=== PATIENT | female | born 1995 | race Two or more races ===

== ENCOUNTER → 2018-08-04 | Outpatient (CLI) | payer BC ==
[2018-08-04 16:42] LABS: Urine Blood Negative /uL (Negative); Urine Specific Gravity 1.025 (1.001-1.035)
[2018-08-04 16:53] LABS: Alanine Aminotransferase 83 U/L (13-56); Alkaline Phosphatase 94 U/L (45-117); Anion Gap 3 (5-15); Aspartate Aminotransferase 52 U/L (15-37); BUN/Creatinine Ratio 17.1; Bilirubin, Direct < 0.1 mg/dL (0-0.2); Bilirubin, Total 0.4 mg/dL (0.2-1.0); Blood Urea Nitrogen 12 mg/dL (7-18); Calcium 9.1 mg/dL (8.5-10.1); Carbon Dioxide 27 mmol/L (21-32); Chloride 108 mmol/L (98-107); Cholesterol 186 mg/dL (< 200); GFR African American 137 mL/min; GFR Non-African American 113 mL/min; Glucose 83 mg/dL (74-106); HDL Cholesterol 39 mg/dL (40-59); LDL Cholesterol 133 mg/dL (< 100); Potassium 4.4 mmol/L (3.5-5.1); Sodium 138 mmol/L (136-145); Total Protein 8.1 g/dL (6.4-8.2); Triglycerides 188 mg/dL (< 150)
[2018-08-04 17:02] LABS: Hemoglobin 14.7 g/dL (12.2-16.2); Mean Corpuscular Hgb Conc. 34.3 g/dL (32.0-36.0); Mean Corpuscular Volume 87.3 fL (80.0-100.0); Platelet Count (auto) 181 10^3/uL (140-450); Red Blood Cells 4.92 10^6/uL (4.0-5.20); Red Cell Distribution Width 15.4 % (11.8-14.3); White Blood Cell 5.9 10^3/uL (4.4-10.8)
[2018-08-04 17:18] LABS: Band Neutrophils % (manual) 0; Basophils % (manual) 0 (0.0-2.0); Blast Cells 0; Metamyelocytes % 0; Myelocytes % 0; Promyelocytes % 0; Reactive Lymphocytes 0
[2018-08-04 17:59] LABS: Eosinophils % (manual) 1 (0-7); Lymphocytes % (manual) 49 (10.0-50.0); Monocytes % (manual) 5 (0-12)
== END | disposition home or self-care (01) ==
LOC: LAB 11:28
PROVIDERS: ATTEND Internal Medicine
DX: E11.9 Type 2 diabetes mellitus without complications (principal); E03.9 Hypothyroidism, unspecified; E55.9 Vitamin D deficiency, unspecified; N39.0 Urinary tract infection, site not specified
CPT/HCPCS: 36415; 80048; 80061; 80076; 81003; 82306; 83036; 84443; 85007; 85027; 87086

== ENCOUNTER → 2018-08-11 | Outpatient (CLI) | payer BC | END | disposition home or self-care (01) | LOC: Rad HDHVI 07:59 | PROVIDERS: ATTEND Internal Medicine Cardiovascular Disease | DX: R07.89 Other chest pain (principal); R94.5 Abnormal results of liver function studies | CPT/HCPCS: 93306 ==

== ENCOUNTER → 2018-08-24 | Outpatient (CLI) | payer BC ==
[~2018-08-24] MED LIST: IOHEXOL 350 MG/ML 100ML IJ ONE
[2018-08-24 14:45] VITALS: BP 114/63
[2018-08-24 15:10] VITALS: BP 119/69
== END | disposition home or self-care (01) ==
LOC: Rad HDHVI 14:43
PROVIDERS: ATTEND Internal Medicine Cardiovascular Disease
DX: R10.9 Unspecified abdominal pain (principal); R07.89 Other chest pain; R06.02 Shortness of breath
CPT/HCPCS: 71260; 74177; 82565; G0463; Q9967